=== PATIENT | female | born 1980 | race Two or more races ===

== ENCOUNTER 2017-02-05 11:15 | Emergency (ER) | payer OTHER ==
[~2017-02-05] VITALS: Ht 157.5 cm; Wt 72.6 kg
[2017-02-05 11:44] VITALS: BP 116/67
[2017-02-05] MEDS ORDERED: PREDNISONE20 MG ORAL (12:10)
[2017-02-05] MEDS ORDERED: DIPHENHYDRAMINE25 M1 ORAL (12:10)
[2017-02-05 12:19] VITALS: BP 116/67
--- NOTE | 2017-02-09 07:15 | Emergency Room Report ---
History of Present Illness General Chief Complaint: Eye Problems Source: Patient Present Illness HPI 36-year-old female presents ED for evaluation. Patient states she's having swelling sensation around her face and eyes. Started today when she went to work. Patient works in housekeeping at a hotel. She noted that initially she noted a lot of swelling across her face and around her eyelids. Denies any burning of the eyes. At this time patient that she feels better but notes some swelling around her eyes. Denies any known food or drug allergies. Denies any shortness of breath fevers or chills. No other aggravating relieving factors. Denies any other associated symptom Allergies: Coded Allergies: No Known Allergies (Unverified , 02/05/17) Patient History Past Medical History: none Past Surgical History: none Pertinent Family History: none Social History: Denies: alcohol use, drug use, smoking Last Menstrual Period: 01/06/17 Now: No Immunizations: UTD Reviewed Nursing Documentation: PMH: Agreed, PSxH: Agreed Nursing Documentation-PMH Past Medical History: No Stated History Review of Systems All Other Systems: negative except mentioned in HPI Physical Exam Vital Signs Date Time Temp Pulse Resp B/P Pulse Ox O2 Delivery O2 Flow Rate FiO2 02/05/17 11:31 98.4 64 16 112/66 100 Room Air Sp02 EP Interpretation: reviewed, normal General Appearance: no apparent distress, alert, GCS 15, non-toxic Head: normocephalic, other - bilateral swelling eyelids Eyes: bilateral eye PERRL, bilateral eye normal inspection ENT: hearing grossly normal, normal pharynx, no angioedema, normal voice, TMs + canals normal Neck: full range of motion, supple/symm/no masses Respiratory: chest non-tender, lungs clear, normal breath sounds, speaking full sentences Cardiovascular #1: normal inspection Gastrointestinal: normal inspection Rectal: deferred Genitourinary: no CVA tenderness Musculoskeletal: back normal Neurologic: alert, oriented x3, responsive, motor strength/tone normal, sensory intact, speech normal Psychiatric: judgement/insight normal, memory normal, mood/affect normal, no suicidal/homicidal ideation Skin: normal inspection Lymphatic: normal inspection Medical Decision Making Diagnostic Impression: Primary Impression: Allergic reaction Qualified Codes: T78.40XA - Allergy, unspecified, initial encounter ER Course 36-year-old female presents ED with bilateral eyelid swelling. After exposure in hotel room Differential-allergic reaction, cellulitis, dermatitis Patient placed on stretcher. After initial history physical exam reveals a young female in no acute distress. There is some bilateral eyelid swelling. No ocular involvement. No facial swelling. Remainder of exam is unremarkable Likely an allergic reaction which has since resolved as exposure has been removed. Will prescribe Benadryl and prednisone Diagnosis - allergic reaction Stable and discharged to home with prednisone and Benadryl. Followup with PMD. Return to ED if symptoms recur or worsen Last Vital Signs Date Time Temp Pulse Resp B/P Pulse Ox O2 Delivery O2 Flow Rate FiO2 02/05/17 12:19 98.3 66 15 116/67 100 Room Air Status: improved Disposition: HOME, SELF-CARE Condition: Stable Scripts Prednisone* (PREDNISONE*) 20 Mg Tablet 40 MG ORAL DAILY, #10 TAB Prov: MALINDA CHAMBERS M.D. 02/05/17 Diphenhydramine Hcl* (DIPHENHYDRAMINE HCL*) 25 Mg Capsule 25 MG ORAL Q6H Y for Itching, #30 CAP 0 Refills Prov: MALINDA CHAMBERS M.D. 02/05/17 Departure Forms: Return to Work Return to Work Date: Feb 07, 2017 Patient Instructions: Allergies, [id number] MALINDA CHAMBERS M.D. Feb 09, 2017 07:15
== END 2017-02-05 12:19 | disposition home or self-care (01) ==
LOC: EMR 11:49
DX: T78.40XA Allergy, unspecified, initial encounter (principal); X58.XXXA Exposure to other specified factors, initial encounter; Y93.9 Activity, unspecified; Y92.9 Unspecified place or not applicable
CPT/HCPCS: 99284